=== PATIENT | female | born 1990 | race Caucasian/White ===

== ENCOUNTER 2018-08-09 16:19 | Inpatient (IN) ==
[2018-08-09] MEDS ORDERED: Ondansetron 4 MG/2 ML VIAL IVP PRN (16:38)
[2018-08-09] MEDS ORDERED: Naloxone 0.4 MG/ML INJ IVP PRN (16:38)
[2018-08-09] MEDS ORDERED: Metoclopramide 10 MG/2 ML VIAL IVP PRN (16:38)
[2018-08-09] MEDS ORDERED: *HR* Nalbuphine 10 MG/ML AMPUL IVP PRN (16:38)
[2018-08-09] MEDS ORDERED: Famotidine 20 MG/2 ML VIAL IVP PRN (16:38)
[2018-08-09] MEDS ORDERED: Penicillin G Potassium 5,000,000 UNIT in 0.9 % Sodium Chloride Mini Bag 100 ML IVPB ONE (16:39)
[2018-08-09] MEDS ORDERED: Ringers Solution, Lactated 1,000 ML IVC SCH (16:45)
[2018-08-09 16:54] LABS: Basophils % 0.2 %; Eosinophils # 0.1 K/mcL (0.0-0.6); Eosinophils % 0.9 %; Hematocrit 38.1 % (35.3-44.9); Immature Granulocytes % 0.8 % (0-4); Lymphocytes # 1.9 K/mcL (0.6-4.6); Lymphocytes % 20.6 %; Mean Corpuscular HGB Conc 34.1 g/dL (31.6-35.5); Mean Corpuscular Hemoglobin 32.6 pg (28.0-33.3); Mean Corpuscular Volume 95.5 fL (83.0-100.0); Mean Platelet Volume 9.2 fL (9.4-12.4); Monocytes # 0.6 K/mcL (0.0-1.3); Monocytes % 6.9 %; Neutrophils # 6.6 K/mcL (1.6-8.9); Platelet Count 203 K/mcL (140-400); Red Blood Count 3.99 M/mcL (3.82-4.97); Red Cell Distribution Width 12.4 % (11.5-14.5); Segmented Neutrophils % 70.6 %; White Blood Count 9.3 K/mcL (4.3-11.1)
[2018-08-09 17:05] LABS: Amphetamine Screen,Urine Negative ng/mL (Cutoff=1000); Barbiturate Screen,Urine Negative ng/mL (Cutoff=200); Benzodiazepines Screen,Urine Negative ng/mL (Cutoff=200); Cannabinoid Screen,Urine Negative ng/mL (Cutoff = 50); Cocaine Screen,Urine Negative ng/mL (Cutoff= 300); Opiate Screen,Urine Negative ng/mL (Cutoff=300); Phencyclidine Screen,Urine Negative ng/mL (Cutoff=25)
[2018-08-09] MEDS ORDERED: Penicillin G Potassium 2,500,000 UNIT in 0.9 % Sodium Chloride 100 ML IVPB SCH (20:00)
--- NOTE | 2018-08-09 22:56 | OB/GYN History & Physical ---
Date of Encounter: 08/09/18 Time of Encounter: 22:22 Assessment and Plan (1) 40 weeks gestation of Current visit: Yes Status: Acute Admit for labor augmentation at 40w0d (2) NST (non-stress test) reactive Current visit: Yes Status: Acute FHR 145 bpm, moderate variability, +15x15 accels, no decels. (3) GBS (group B Streptococcus carrier), +RV culture, currently Current visit: Yes Status: Acute PCN-G prophylaxis q4h until delivery. (4) Blood type A- Current visit: Yes Status: Acute Collect cord blood at delivery Rhogam prior to discharge if indicated. History of Present Illness Chief complaint: Contractions HPI: Mrs. Campos is a 28 year old female at 40w0d who presents to L&D with complaint of contractions today. She reports positive movement and denies any vaginal bleeding or fluid leakage. She reports that she didn't really feel contractions well with any of her births and had to be told when to push with her first delivery. She denies any complications in this but does reports previous PPH x 2 and one baby who at 8 hours of age. Blood type: A negative GBS positive Rubella Non-Immune Varicella Immune T. Pall negative HIV negative HbSAG negative Past Med Surg Social Fam HX - Past Medical History Source: patient Medical history: no medical history Psychiatric history: no psych history - Past Surgical History Surgical History: no surgical history - Social History Smoking Status: Never smoker Smokeless Tobacco Status: No Alcohol use: none Drug use: none Current living situation: Home - Independent, With Family Activity Level: Independent ambulation Recent Out of Country Travel Within the Last 8 Weeks: No Exposure or Possible Exposure to Illness During Travel: No - Family History Mother Living Status: Still Living Hx Family Cardiac Disorders: Yes (HTN, high cholesterol) Hx Family Endocrine Disorder: Yes (DM) Obstetrical History - Pregnancies : 8 Para: 6 Term: 6 : 0 Ab's: 1 Livin (1 at 8 hrs of age) Medications and Allergies Vit #108/Iron/FA [ One Tablet] 1 each PO DAILY 08/09/18 [History] Allergy/AdvReac Type Severity Reaction Status Date / Time No Known Allergies Allergy Verified 08/09/18 16:41 Review of System OB All systems PM: reviewed and no additional remarkable complaints except as stated Exam - Constitutional Constitutional: well developed, well nourished, no acute distress - HEENT HEENT: PERRL, Normocephaly - Lungs Respiratory exam: CTAB - Cardiovascular Cardiovascular exam: RRR, +S1, +S2 - Breasts Breast: bilateral: normal - Abdomen Abdomen: Present: bowel sounds normal, gravid, non tender - Extremities Extremities exam: full ROM, normal capillary refill, normal inspection - Vulva Vulva: bilateral: normal - Vagina Vagina: Present: normal moisture - Cervix Dilation: 5 Effacement: 80 Station: -2 - Uterus Uterus exam: Present: normal size - Anus/Rectum Anus/Rectum: Present: normal perianal skin Results Result Diagrams: 08/09/18 16:38 Abnormal lab results MPV 9.2 fL (9.4-12.4) L 08/09/18 16:38 All other labs normal. - VTE Reasons for not Prescribing Prophylaxis: Treatment not Indicated - Low risk for VTE
--- NOTE | 2018-08-09 23:15 | OB Labor Progress Note ---
Date of Encounter: 08/09/18 Time of Encounter: 21:25 Labor Progress Note - Subjective Subjective: Patient resting in bed reading a book. - Vital Signs Vital Signs: WNL - Cervix Cervix: 5/80/-2 - Heart Tones Heart Tones: 140 bpm, Category I tracing - Dola Dola: Irregular - Interventions Interventions: SVE Discussed augmentation options of AROM, Cytotec or Pitocin Patient is agreeable to AROM for labor augmentation. She is currently receiving her 2nd dose of PCN-G for GBS. - Plan Physician notified: Yes Physician notified details: Dr. Urrutia aware of SVE and AROM Plan: Continue expectant management Intermittent monitoring, ambulation Continue GBS prophylaxis q4h until delivery Anticipate
[2018-08-10] MEDS ORDERED: miSOPROStol 25 MCG TABLET PO PRN (02:31)
[2018-08-10] MEDS ORDERED: Oxytocin 20 units/ LR 1000 mL 20 UNIT/1,000 ML BAG IVC SCH ×2 (02:45→05:17)
--- NOTE | 2018-08-10 03:26 | OB Labor Progress Note ---
Date of Encounter: 08/10/18 Time of Encounter: 03:22 Labor Progress Note - Subjective Subjective: Patient feeling some pressure with contractions. Coping well with contractions. - Vital Signs Vital Signs: WNL - Cervix Cervix: 8/80/-2 - Heart Tones Heart Tones: FHR 125 bpm, moderate variability, +15x15 accels, no decels. - Turpin Turpin: Irregular - Interventions Interventions: SVE - Plan Physician notified: Yes Physician notified details: Dr. Urrutia on L&D and aware of most recent SVE Plan: Continue expectant management Patient offered Pitocin augmentation but declined at this time. Continue GBS prophylaxis Anticipate
--- NOTE | 2018-08-10 05:05 | OB/GYN Procedure Note ---
Delivery - Delivery Date: 08/10/18 Provider: Irais Nolen Intrapartum events: none Delivery induction: none Delivery augmentation: rupture of membranes Delivery monitor: external FHT, external uterine Anesthesia: none Quantitated Blood Loss: 25 - (s) Infant A Delivery Date: 08/10/18 Infant Delivery Time: 04:29 Presentation: vertex Position: OA Route of delivery: Gender: Female Viability: Viable Pounds: 8 Ounces: 1 Weight Gram: 3660 kg at 1 minute: 9 at 5 mins: 9 Shoulder Dystocia: not encountered Specimens collected: cord blood Placenta: spontaneous Cord: 3 umbilical vessels - Repair Episiotomy: none Laceration Description: None - Complications Delivery complications: none Delivery comments: Called to room for delivery. Under maternal effort, spontaneous delivery of viable female infant over intact perineum. placed on maternal abdomen for drying and stimulation. Cord clamped and cut after pulsation ceased. Spontaneous delivery of intact placenta, EBL 25 MLS. No nuchal cord, shoulder dystocia, or meconium encountered. Mother and in kangaroo care for 2 hour recovery. - Disposition Mom disposition: stable in LDR [place] disposition: stable in LDR
[2018-08-10] MEDS ORDERED: Benzocaine/Menthol 56 GM AEROSOL SPRAY TP PRN (05:17)
[2018-08-10] MEDS ORDERED: Measles/Mumps/Rubella Vacc 0.5 ML VIAL SQ PRN (05:17)
[2018-08-10] MEDS ORDERED: Rho Immune Globulin 1,500 UNIT SYRINGE IM PRN (05:17)
[2018-08-10] MEDS ORDERED: Acetaminophen 325 MG TABLET PO PRN (05:17)
[2018-08-10] MEDS ORDERED: Lanolin 28 GM TUBE TP PRN (05:17)
[2018-08-10] MEDS ORDERED: Prenatal Vit/FA 1 EACH TABLET PO SCH (09:00)
--- NOTE | 2018-08-10 11:07 | Discharge Summary ---
Date of Encounter: 08/10/18 Time of Encounter: 11:03 - Discharge Diagnosis (1) Vaginal delivery Priority: Primary Status: Acute Comments: Stable, meeting PP milestones, desires early discharge - Discharge Medications Prescriptions: New Acetaminophen [Tylenol] 650 mg PO Q6HR PRN tablet PRN Reason: Mild Pain Benzocaine/Menthol Alpine [Dermoplast Alpine] 1 appl TP QID PRN aerosol PRN Reason: See Comments Docusate [Colace] 100 mg PO BID capsule Lanolin 1 appl TP QID PRN tube PRN Reason: Continued Vit #108/Iron/FA [ One Tablet] 1 each PO DAILY Home Medications: Vit #108/Iron/FA [ One Tablet] 1 each PO DAILY 08/09/18 [History] Acetaminophen [Tylenol] 650 mg PO Q6HR PRN tablet 08/10/18 [Rx] Benzocaine/Menthol Alpine [Dermoplast Alpine] 1 appl TP QID PRN aerosol 08/10/18 [Rx] Docusate [Colace] 100 mg PO BID capsule 08/10/18 [Rx] Lanolin 1 appl TP QID PRN tube 08/10/18 [Rx] Allergies/Adverse Reactions: Allergy/AdvReac Type Severity Reaction Status Date / Time No Known Allergies Allergy Verified 08/09/18 16:41 Data Procedures and tests throughout hospitalization: Laboratory Tests 08/09/18 08/09/18 08/10/18 16:38 16:38 04:56 WBC 9.3 RBC 3.99 Hgb 13.0 Hct 38.1 MCV 95.5 MCH 32.6 MCHC 34.1 RDW 12.4 Plt Count 203 MPV 9.2 L Immature Gran % 0.8 Seg Neutrophils % 70.6 Lymphocytes % 20.6 Monocytes % 6.9 Eosinophils % 0.9 Basophils % 0.2 Neutrophils # 6.6 Lymphocytes # 1.9 Monocytes # 0.6 Eosinophils # 0.1 Basophils # 0.0 Urine Opiates Screen Negative Ur Buprenorphine Scrn Negative Ur Barbiturates Screen Negative Ur Phencyclidine Scrn Negative Ur Amphetamines Screen Negative U Benzodiazepines Scrn Negative Urine Cocaine Screen Negative U Marijuana (THC) Screen Negative Ur Drug Screen Interp See Below Baby's Blood Type O RH NEGATIVE Mother's Blood Type A RH NEGATIVE Rhogam Indicated NO Labs on day of discharge: Labs from last 24 hours 08/10/18 08/09/18 08/09/18 04:56 16:38 16:38 WBC 9.3 RBC 3.99 Hgb 13.0 Hct 38.1 MCV 95.5 MCH 32.6 MCHC 34.1 RDW 12.4 Plt Count 203 MPV 9.2 L Immature Gran % 0.8 Seg Neutrophils % 70.6 Lymphocytes % 20.6 Monocytes % 6.9 Eosinophils % 0.9 Basophils % 0.2 Neutrophils # 6.6 Lymphocytes # 1.9 Monocytes # 0.6 Eosinophils # 0.1 Basophils # 0.0 Urine Opiates Screen Negative Ur Buprenorphine Scrn Negative Ur Barbiturates Screen Negative Ur Phencyclidine Scrn Negative Ur Amphetamines Screen Negative U Benzodiazepines Scrn Negative Urine Cocaine Screen Negative U Marijuana (THC) Screen Negative Ur Drug Screen Interp See Below Baby's Blood Type O RH NEGATIVE Mother's Blood Type A RH NEGATIVE Rhogam Indicated NO Date of admission: 08/09/18 16:19 Primary care physician: PCP NONE Consults: 08/10/18 05:17 Consult to [facility] [employer] [facility] [CONS] Routine Comment: Vaginal delivery, consult needed Discharging clinician: Arleth Jackson Anticipated date of discharge: 08/10/18 - Patient Status Disposition: Home, Self-Care Condition: Good Overall status at discharge: patient is progressing back to baseline - Discharge Instructions Follow Up With: NONE,PCP [Primary Care Provider] - Pau Goodman CNM [Non-Partnered Physician] - - Diet and Activity Activity: resume usual activities as tolerated Diet: regular diet Hospital Course Reason for admission: active labor, IUP at term Delivery: Episiotomy: none Laceration: none Other procedures: none complications: none Hospital course: Delivery - Delivery Date: 08/10/18 Provider: Irais Nolen Intrapartum events: none Delivery induction: none Delivery augmentation: rupture of membranes Delivery monitor: external FHT, external uterine Anesthesia: none Quantitated Blood Loss: 25 - Infant (s) A Infant Delivery Date: 08/10/18 Delivery Time: 04:29 Presentation: vertex Position: OA Route of delivery: Gender: Female Viability: Viable Pounds: 8 Ounces: 1 Weight Gram: 3660 kg at 1 minute: 9 at 5 mins: 9 Shoulder Dystocia: not encountered Specimens collected: cord blood Placenta: spontaneous Cord: 3 umbilical vessels - Repair Episiotomy: none Laceration Description: None - Complications Delivery complications: none Delivery comments: Called to room for delivery. Under maternal effort, spontaneous delivery of viable female over intact perineum. Infant placed on maternal abdomen for drying and stimulation. Cord clamped and cut after pulsation ceased. Spontaneous delivery of intact placenta, EBL 25 MLS. No nuchal cord, shoulder dystocia, or meconium encountered. Mother and in kangaroo care for 2 hour recovery. - Disposition Mom disposition: stable in PP and appropriate for discharge Time Attestation: Total time spent providing and/or coordinating discharge services: Exam - Constitutional Vitals: Temp Pulse Resp BP Pulse Ox 97.6 F 62 16 114/71 97 08/10/18 08:45 08/10/18 08:45 08/10/18 08:45 08/10/18 08:45 08/10/18 07:45 General appearance IM: A&O X 3 - Respiratory Respiratory exam: Present: CTAB - Cardiovascular Cardiovascular exam IM: Present: RRR - GI/Abdominal GI/Abdominal exam IM: soft - Uterine Tone: Firm Uterus Position: At Umbilicus - Extremities Exam Extremities exam IM: Present: calf tenderness, normal inspection - Neurological Exam Neurological exam: normal gait, oriented X3 - Psychiatric Additional comments: reports good mood
[2018-08-10 14:14] VITALS: BP 120/70
== END 2018-08-10 21:00 | disposition home or self-care (01) | DRG 807 ==
LOC: 1NENULAB 16:19 → 1NENUOBS 08-10 08:56
PROVIDERS: ADMIT Registered Nurse; ATTEND Registered Nurse